=== PATIENT | male | born 1975 | race Caucasian/White ===

== ENCOUNTER 2020-09-03 09:43 | Emergency (ER) | payer OTHER | END 2020-09-03 11:39 | disposition home or self-care (01) | LOC: JVIRT 09:43 | DX: Z20.822 Contact with and (suspected) exposure to COVID-19 (principal) | CPT/HCPCS: C9803; Q3014-GT; U0003 ==

== ENCOUNTER 2022-03-31 08:22 | Emergency (ER) | payer OTHER ==
[2022-03-31 08:37] VITALS: BP 132/84; PULSE 72; RESP 20; TEMP 98.1; BMI 30.1
== END 2022-03-31 09:11 | disposition home or self-care (01) ==
LOC: FER 08:22
DX: R20.8 Other disturbances of skin sensation (principal)
CPT/HCPCS: 73630-TC-RT-FY; 99283-25

== ENCOUNTER 2023-09-13 18:28 | Emergency (ER) | payer OTHER ==
[2023-09-13 18:49] VITALS: BP 124/86; PULSE 74; RESP 15; TEMP 98.6; BMI 28.8
== END 2023-09-13 22:00 | disposition home or self-care (01) ==
LOC: FER 18:28
DX: S16.1XXA Strain of muscle, fascia and tendon at neck level, initial encounter (principal); S09.90XA Unspecified injury of head, initial encounter; V00.321A Fall from snow-skis, initial encounter; Y92.9 Unspecified place or not applicable
CPT/HCPCS: 70450-TC; 72125-TC; 99284-25

== ENCOUNTER 2023-12-29 10:48 | Emergency (ER) | payer OTHER ==
[2023-12-29 11:01] VITALS: BP 123/89; PULSE 63; RESP 18; TEMP 97.8; BMI 28.8
[2023-12-29] MEDS ORDERED: ACETAMINOPHEN INJECTION 100 ML IVPB ONE (11:31)
[2023-12-29] MEDS: ACETAMINOPHEN 1000 MG/100 ML BAG IVPB ONE (11:35)
[2023-12-29 12:00] LABS: HEMATOCRIT 47.5 % (35.4-49); HEMOGLOBIN 15.9 G/dL (11.7-16.9); MCH 30.4 pg (25.7-33.7); MCHC 33.5 g/dl (32.0-35.9); MEAN CELL VOLUME 90.7 fl (80-96); MEAN PLT VOLUME 9.2 fl (7.5-11.1); PLATELET COUNT 156.9 10^3/uL (134-434); RBC 5.24 10^6/uL (4.00-5.60); RDW 13.6 % (11.9-15.9); WHITE BLOOD COUNT 9.5 10^3/uL (4.0-10.8)
[2023-12-29 12:08] LABS: INR 1.01 (0.83-1.09); PROTHROMBIN TIME (PATIENT) 11.5 SEC (9.7-13.0)
[2023-12-29 12:24] LABS: ALBUMIN 4.8 g/dl (3.4-5.0); BILIRUBIN,TOTAL 1.3 mg/dl (0.2-1); CALCIUM 9.8 mg/dl (8.5-10.1); CREATININE 0.9 mg/dl (0.6-1.3); POTASSIUM 4.1 mmol/L (3.5-5.1); TOT PROT 6.9 g/dl (6.4-8.2)
[2023-12-29 13:09] LABS: EPITHELIAL CELLS 0-5 /hpf
[2023-12-29 14:40] LABS: PLATELET ESTIMATE ADEQUATE
== END 2023-12-29 15:10 | disposition home or self-care (01) ==
LOC: FER 10:48
PROC: 3E033NZ Introduction of Analgesics, Hypnotics, Sedatives into Peripheral Vein, Percutaneous Approach (ICD-10-PCS; principal; 2023-12-29)
DX: R10.32 Left lower quadrant pain (principal); K57.92 Diverticulitis of intestine, part unspecified, without perforation or abscess without bleeding
CPT/HCPCS: 36415; 74177-TC; 80053; 81003; 81015; 85027; 85610; 85730; 86850; 86900; 86901; 87086; 99285-25; J0131; Q9967

== ENCOUNTER 2024-06-08 04:08 | Emergency (ER) | payer OTHER ==
[2024-06-08 04:17] VITALS: BP 139/90; PULSE 65; RESP 17; TEMP 97.5; BMI 28.8
[2024-06-08] MEDS ORDERED: KETOROLAC TROMETHAMINE 60 MG/2 ML VIAL ONE (04:33)
[2024-06-08] MEDS: KETOROLAC TROMETHAMINE 60 MG/2 ML VIAL IM ONE (04:42)
[2024-06-08] MEDS: LIDOCAINE 5% TOPICAL PATCH TP ONE (04:57)
[2024-06-08] MEDS ORDERED: LIDOCAINE PATCH REMOVAL MC ONE (17:00)
== END 2024-06-08 06:15 | disposition home or self-care (01) ==
LOC: FER 04:08
PROC: 3E0233Z Introduction of Anti-inflammatory into Muscle, Percutaneous Approach (ICD-10-PCS; principal; 2024-06-08)
DX: M54.12 Radiculopathy, cervical region (principal)
CPT/HCPCS: 99284-25